=== PATIENT | female | born 1960 | race Caucasian/White ===

== ENCOUNTER → 2022-11-06 | Outpatient (CLI) | payer OTHER ==
[~2022-11-06] MED LIST: CATHETER FLUSH 10 ML SYR IVP PRN; REGADENOSON 0.4 MG/5 ML SYR (LEXISCAN) IV ONE
[2022-11-06 13:28] VITALS: BP 192/102
--- NOTE | 2022-11-06 15:43 | Cardiology Stress Test Report ---
Stress Test Report Date of Procedure/Referring: Date of Procedure: Nov 06, 2022 PCP Chelsey Barney MD Admitting Physician Admitting Physician: Attending Physician: Chelsey Barney MD Baseline Heart Rate: 69 Baseline Blood Pressure: Blood Pressure Systolic: 192 Blood Pressure Diastolic: 102 Baseline Vitals Vital Signs Date Time Temp Pulse Resp B/P (MAP) Pulse Ox O2 Delivery O2 Flow Rate FiO2 11/06/22 13:28 69 192/102 (132) 98 Baseline EKG: Baseline EKG: NSR Summary After explaining the procedure to the patient, she signed a consent and then brought to the stress nuclear laboratory. Patient received 0.4 mg Lexiscan for stress test, ECG, heart rate and blood pressure were monitored continuously. Resting and stress dose of radio tracer were injected, imaging was acquired and reviewed in short axis, horizontal long axis and vertical long axis views. TID: 1.12 SSS: 5 SDS: 3 EF: 80 Patient tolerated Lexiscan well No ischemia or infarction noted on SPECT images Normal left ventricular size, ejection fraction 80% MERRICK CORDON MD Nov 06, 2022 15:43
== END ==
LOC: CARD 11:28
PROVIDERS: ATTEND Pediatrics
DX: E78.2 Mixed hyperlipidemia (principal)
CPT/HCPCS: 78452; 93017; A9502